=== PATIENT | male | born 1955 | race Caucasian/White ===

== ENCOUNTER → 2018-01-22 | Outpatient (CLI) | payer BC ==
[~2018-01-22] MED LIST: ASPI-496 PO; CBC OIL PO; PRAV10TA2 PO
[2018-01-22 15:35] LABS: MICROSCOPIC NOT IND
[2018-01-22 15:37] LABS: CULTURE INDICATED? NO
[2018-01-22 16:05] LABS: BASOPHILS # (AUTO) 0.04 x10^3/uL (0-0.1); BASOPHILS % (AUTO) 1 % (0-1); EOSINOPHILS # (AUTO) 0.07 x10^3/uL (0-0.4); EOSINOPHILS % (AUTO) 1 % (1-7); LYMPHOCYTES # (AUTO) 2.56 x10^3/uL (1-3.4); LYMPHOCYTES % (AUTO) 37 % (22-44); MD NO; MEAN CORPUSCULAR HEMOGLOBIN 32.5 pg (27.5-34.5); MEAN CORPUSCULAR HGB CONC 34.3 g/dL (33.2-36.2); MEAN CORPUSCULAR VOLUME 94.9 fL (81-97); MONOCYTES # (AUTO) 0.47 x10^3/uL (0.2-0.8); MONOCYTES % (AUTO) 7 % (2-9); NEUTROPHILS # (AUTO) 3.86 x10^3/uL (1.8-6.8); NEUTROPHILS % (AUTO) 55 % (42-75); PLATELET COUNT 231 x10^3/uL (130-400); RED BLOOD COUNT 4.71 x10^6/uL (4.38-5.82); RED CELL DISTRIBUTION WIDTH 13.4 % (9.4-14.8)
[2018-01-22 16:17] LABS: ANION GAP 8 mmol/L (5-15); CALCIUM 8.7 mg/dL (8.5-10.1); CHLORIDE 109 mmol/L (98-107); CREATININE 0.91 mg/dL (0.7-1.3)
== END | disposition home or self-care (01) ==
LOC: STAR 15:37
PROVIDERS: ATTEND Orthopaedic Surgery
DX: Z01.818 Encounter for other preprocedural examination (principal); M17.12 Unilateral primary osteoarthritis, left knee
CPT/HCPCS: 36415; 80048; 81003; 85025; 87081; 93005

== ENCOUNTER 2018-01-27 07:34 | Inpatient (IN) | payer BC ==
[~2018-01-27] VITALS: Ht 180.3 cm; Wt 98.5 kg
[2018-01-27] MEDS ORDERED: TAMSULOSIN 0.4 MG CAP.ER.24H PO ONE (08:00)
[2018-01-27] MEDS ORDERED: GABAPENTIN 300 MG CAPSULE PO ONE (08:00)
[2018-01-27] MEDS ORDERED: ONDANSETRON ODT 8 MG PO ONE (08:00)
[2018-01-27] MEDS ORDERED: OxyconTIN ER 20 MG TAB.ER PO ONE (08:00)
[2018-01-27] MEDS ORDERED: ACETAMINOPHEN 500 MG TABLET PO ONE (08:00)
[2018-01-27] MEDS ORDERED: LACTATED RINGERS 1,000 ML IV SCH (08:01)
[2018-01-27 08:14] VITALS: BP 129/88
[2018-01-27] MEDS ORDERED: MIDAZOLAM 1 MG/ML, 2ML ONE (09:53)
[2018-01-27] MEDS ORDERED: FENTANYL PF 250 MCG/5ML ONE (09:53)
[2018-01-27] MEDS ORDERED: TRANEXAMIC ACID 100 MG/ML, 10ML ONE (10:26)
[2018-01-27] MEDS ORDERED: KETOROLAC 60 MG/2 ML ONE (10:26)
[2018-01-27] MEDS ORDERED: EPINEPHRINE 1 MG/ML, 1ML ONE (10:27)
[2018-01-27] MEDS ORDERED: ROPIvacaine/PF 0.2%, 20 ML ONE (10:27)
[2018-01-27] MEDS ORDERED: SODIUM CHLORIDE 0.9% 100 ML ONE (10:27)
[2018-01-27] MEDS ORDERED: ALUMINUM/MAG/SIMETHICONE 30 ML UDC PO PRN (11:00)
[2018-01-27] MEDS ORDERED: MAGNESIUM HYDROXIDE 8%, 30ML UDC PO PRN (11:00)
[2018-01-27] MEDS ORDERED: DIAZEPAM 5 MG TABLET PO PRN (11:00)
[2018-01-27] MEDS ORDERED: BISACODYL 10 MG SUPP PR PRN (11:00)
[2018-01-27] MEDS ORDERED: ONDANSETRON 4 MG TABLET PO PRN (11:00)
[2018-01-27] MEDS ORDERED: PROMETHAZINE 25 MG/ML, 1ML IM PRN (11:00)
[2018-01-27] MEDS ORDERED: DIPHENHYDRAMINE 50 MG CAPSULE PO PRN (11:00)
[2018-01-27] MEDS ORDERED: PROMETHAZINE 12.5 MG SUPP PR PRN (11:00)
[2018-01-27] MEDS: ACETAMINOPHEN 650 MG/20.3 ML UDC PO SCH ×3 (11:00→23:39)
[2018-01-27] MEDS ORDERED: SENNA/DOCUSATE TABLET PO PRN (11:00)
[2018-01-27] MEDS ORDERED: OXYcodone IR 5MG TABLET PO PRN (11:00)
[2018-01-27] MEDS ORDERED: HYDROmorphone 1 MG/ML, 1ML IV PRN (11:00)
[2018-01-27] MEDS ORDERED: ZOLPIDEM 5MG TABLET PO PRN (11:00)
[2018-01-27] MEDS: KETOROLAC 30 MG/1 ML IV SCH ×3 (11:00→23:39)
[2018-01-27] MEDS ORDERED: PROMETHAZINE 25 MG/ML, 1ML IV PRN (11:30)
[2018-01-27] MEDS ORDERED: MEPERIDINE/PF 25MG/0.5ML IVPush PRN (11:30)
[2018-01-27] MEDS ORDERED: LABETALOL 5MG/ML, 20ML IV PRN (11:30)
[2018-01-27] MEDS ORDERED: FENTANYL PF 100 MCG/2ML IV PRN (11:30)
[2018-01-27] MEDS ORDERED: hydrALAzine 20 MG/ML, 1ML IV PRN (11:30)
[2018-01-27] MEDS ORDERED: ONDANSETRON 2MG/ML, 2ML IV PRN (11:30)
[2018-01-27] MEDS ORDERED: HYDROmorphone 2 MG/ML, 1ML IVPush PRN (11:30)
[2018-01-27] MEDS ORDERED: ALBUTEROL/IPRATROPIUM 2.5MG/0.5MG, 3 ML NPPB PRN (11:30)
[2018-01-27] MEDS ORDERED: MIDAZOLAM 1 MG/ML, 2ML IV PRN (11:30)
[2018-01-27] MEDS ORDERED: BUPIVACAINE/PF 0.25% ONE (11:46)
[2018-01-27] MEDS ORDERED: DEXAMETHASONE 4 MG/ML, 1ML ONE (11:47)
[2018-01-27] MEDS ORDERED: FENTANYL PF 100 MCG/2ML ONE (11:47)
[2018-01-27] MEDS ORDERED: PROPOFOL 10 MG/ML, 20ML ONE (11:47)
[2018-01-27] MEDS ORDERED: LIDOCAINE-MPF 2% ,5ML ONE (11:47)
[2018-01-27] MEDS ORDERED: CEFAZOLIN 1,000 MG ONE (11:47)
[2018-01-27] MEDS ORDERED: TRANEXAMIC ACID 1,000 MG in SODIUM CHLORIDE 0.9% 100 ML IVPB ONE (12:15)
[2018-01-27] MEDS: TAMSULOSIN 0.4 MG CAP.ER.24H PO SCH (12:15)
[2018-01-27] MEDS ORDERED: OXYcodone 5 MG/5 ML ORAL.SOL UDC ONE ×2 (12:40→13:01)
[2018-01-27] MEDS: OXYcodone 5 MG/5 ML ORAL.SOL UDC PO PRN ×2 (12:41→12:50)
[2018-01-27 14:00] VITALS: BP 113/69
[2018-01-27] MEDS: D5%-0.45% NACL 1,000 ML IV SCH ×2 (15:00→23:00)
[2018-01-27] MEDS ORDERED: ACETAMINOPHEN 500 MG TABLET ONE (17:15)
[2018-01-27] MEDS: ASPIRIN 81 MG TABLET EC PO SCH (17:22)
[2018-01-27] MEDS: CEFAZOLIN PMX 2GM/50ML 50 ML IVPB SCH (17:22)
[2018-01-27] MEDS: ONDANSETRON 2MG/ML, 2ML IV PRN (17:46)
[2018-01-27 20:00] VITALS: BP 113/62
[2018-01-27] MEDS: DOCUSATE 100 MG CAPSULE PO SCH (20:16)
[2018-01-27] MEDS ORDERED: PRAVASTATIN 20 MG TABLET PO SCH (21:00)
[2018-01-27 23:42] VITALS: BP 128/72
[2018-01-28] MEDS: ONDANSETRON 2MG/ML, 2ML IV PRN (00:01)
[2018-01-28] MEDS: CEFAZOLIN PMX 2GM/50ML 50 ML IVPB SCH (01:25)
[2018-01-28 04:00] VITALS: BP 141/75
[2018-01-28] MEDS: ACETAMINOPHEN 650 MG/20.3 ML UDC PO SCH ×2 (05:00→10:27)
[2018-01-28] MEDS: KETOROLAC 30 MG/1 ML IV SCH ×2 (05:11→10:27)
[2018-01-28] MEDS: ASPIRIN 81 MG TABLET EC PO SCH (05:11)
[2018-01-28] MEDS ORDERED: DEXAMETHASONE 4 MG/ML, 1ML IVPush SCH (06:00)
[2018-01-28] MEDS: D5%-0.45% NACL 1,000 ML IV SCH ×2 (07:00→10:27)
[2018-01-28] MEDS: DOCUSATE 100 MG CAPSULE PO SCH (08:26)
[2018-01-28] MEDS: TAMSULOSIN 0.4 MG CAP.ER.24H PO SCH (08:27)
[2018-01-28 08:34] VITALS: BP 157/82
[2018-01-28] MEDS ORDERED: MULTIVITAMINS/MINERALS TABLET PO SCH (09:00)
[2018-01-28] MEDS ORDERED: OXYC5CAP2 PO (12:44)
[2018-01-28 13:34] VITALS: BP 142/76
== END 2018-01-28 14:45 | disposition home or self-care (01) | DRG 470 ==
LOC: OUT 07:34 → ORIP 10:33 → 4NOR 13:11 → DCLOUNGE 01-28 14:37
PROVIDERS: ADMIT Orthopaedic Surgery; ATTEND Orthopaedic Surgery
PROC: 0SRD069 Replacement of Left Knee Joint with Oxidized Zirconium on Polyethylene Synthetic Substitute, Cemented, Open Approach (ICD-10-PCS; 2018-01-27)
PROC: 3E0T3BZ Introduction of Anesthetic Agent into Peripheral Nerves and Plexi, Percutaneous Approach (ICD-10-PCS; principal; 2018-01-27 10:30)
DX: M17.12 Unilateral primary osteoarthritis, left knee (principal); E78.5 Hyperlipidemia, unspecified; Z79.82 Long term (current) use of aspirin; Z88.5 Allergy status to narcotic agent
CPT/HCPCS: 36415; 85014; 85018; C1713; G0378; J0171; J0690; J1100; J1885; J2250; J2405; J2704; J2795; J3010; J3490; Q0162; C1776; J7120

== ENCOUNTER 2020-10-25 07:34 | Observation (INO) | payer OTHER, MEDICARE ==
[~2020-10-25] VITALS: Ht 180.3 cm; Wt 95.5 kg
[~2020-10-25 07:34] MED LIST changes: +EPINEPHRINE 1 MG/ML, 1ML ONE; +KETOROLAC 60 MG/2 ML ONE; +OXYC5CAP2 PO; +ROPIvacaine/PF 0.2%, 20 ML ONE; +SODIUM CHLORIDE 0.9% 50 ML ONE; +TRANEXAMIC ACID 100 MG/ML, 10ML ONE; +VANCOMYCIN 1,000 MG ONE
[2020-10-25] MEDS ORDERED: CHLORHEXIDINE 15 ML UDC ONE (08:21)
[2020-10-25] MEDS ORDERED: [UNRECOGNIZED DRUG - OTHER] INJ (08:29)
[2020-10-25] MEDS ORDERED: VIT B12 PO (08:29)
[2020-10-25] MEDS ORDERED: VIT D3 PO (08:29)
[2020-10-25] MEDS ORDERED: ZINC PO (08:29)
[2020-10-25] MEDS ORDERED: FISH OIL PO (08:29)
[2020-10-25] MEDS ORDERED: ONDANSETRON 4 MG TABLET PO PRN (08:30)
[2020-10-25] MEDS ORDERED: HYDROmorphone 1 MG/ML, 1ML INJ IVPush PRN ×2 (08:30→09:30)
[2020-10-25] MEDS ORDERED: DIAZEPAM 5 MG TABLET PO PRN (08:30)
[2020-10-25] MEDS ORDERED: CEFAZOLIN PMX 1GM/50ML 50 ML IVPB SCH (08:30)
[2020-10-25] MEDS ORDERED: OXYcodone/APAP 5/325MG TABLET PO PRN (08:30)
[2020-10-25] MEDS ORDERED: LACTATED RINGERS 1,000 ML IV SCH (08:30)
[2020-10-25] MEDS ORDERED: DIPHENHYDRAMINE 50 MG/ML, 1ML IVPush PRN ×3 (08:30→09:30)
[2020-10-25] MEDS ORDERED: CHLORHEXIDINE 15 ML UDC PO ONE (08:30)
[2020-10-25] MEDS ORDERED: KETOROLAC 30 MG/1 ML IV SCH (08:30)
[2020-10-25] MEDS ORDERED: ACETAMINOPHEN 325 MG TABLET PO PRN (08:30)
[2020-10-25] MEDS ORDERED: VANCOMYCIN PER PHARMACY MC PRN (08:30)
[2020-10-25] MEDS ORDERED: PROMETHAZINE 25 MG/ML, 1ML IM PRN (08:30)
[2020-10-25] MEDS ORDERED: OXYcodone 5 MG/5 ML ORAL.SOL UDC PO PRN ×2 (08:30→09:30)
[2020-10-25 08:32] VITALS: BP 166/93
[2020-10-25] MEDS ORDERED: FENTANYL PF 250 MCG/5ML ONE (08:54)
[2020-10-25] MEDS ORDERED: MIDAZOLAM 1 MG/ML, 2ML ONE (08:54)
[2020-10-25] MEDS ORDERED: PROPOFOL 10 MG/ML, 20ML ONE (08:57)
[2020-10-25] MEDS ORDERED: ONDANSETRON 2MG/ML, 2ML ONE (08:59)
[2020-10-25] MEDS ORDERED: CEFAZOLIN 1,000 MG ONE (08:59)
[2020-10-25] MEDS ORDERED: SUCCINYLCHOLINE 20 MG/ML, 10ML ONE (08:59)
[2020-10-25] MEDS ORDERED: DOCUSATE 100 MG CAPSULE PO SCH (09:00)
[2020-10-25] MEDS ORDERED: VANCOMYCIN 1,900 MG in SODIUM CHLORIDE 0.9% 250 ML IV ONE (09:00)
[2020-10-25] MEDS ORDERED: DEXAMETHASONE 4 MG/ML, 1ML ONE (09:07)
[2020-10-25] MEDS ORDERED: hydrALAzine 20 MG/ML, 1ML IV PRN (09:30)
[2020-10-25] MEDS ORDERED: PROMETHAZINE 25 MG/ML, 1ML IVPush PRN (09:30)
[2020-10-25] MEDS ORDERED: ONDANSETRON 2MG/ML, 2ML IVPush PRN (09:30)
[2020-10-25] MEDS ORDERED: EPHEDRINE 50 MG/ML, 1ML IVPush PRN (09:30)
[2020-10-25] MEDS ORDERED: MEPERIDINE/PF 25MG/0.5ML IVPush PRN (09:30)
[2020-10-25] MEDS ORDERED: MIDAZOLAM 1 MG/ML, 2ML IV PRN (09:30)
[2020-10-25] MEDS ORDERED: ALBUTEROL SULFATE 2.5 MG/3 ML NPPB PRN (09:30)
[2020-10-25] MEDS ORDERED: DEXAMETHASONE 4 MG/ML, 1ML IVPush SCH (09:30)
[2020-10-25] MEDS ORDERED: LABETALOL 5MG/ML, 20ML IV PRN (09:30)
[2020-10-25] MEDS ORDERED: FENTANYL PF 100 MCG/2ML IV PRN (09:30)
[2020-10-25] MEDS ORDERED: DIAZEPAM 5 MG/ML, 2ML IVPush PRN (09:30)
[2020-10-25] MEDS ORDERED: PROMETHAZINE 12.5 MG SUPP PR PRN (09:30)
[2020-10-25] MEDS ORDERED: DIAZEPAM 5 MG/ML, 2ML ONE (10:54)
[2020-10-25] MEDS ORDERED: OXYcodone 5 MG/5 ML ORAL.SOL UDC ONE (10:54)
[2020-10-25] MEDS ORDERED: ACETAMINOPHEN 650 MG/20.3 ML UDC ONE (10:54)
[2020-10-25] MEDS ORDERED: TRANEXAMIC ACID 1,000 MG in SODIUM CHLORIDE 0.9% 100 ML IVPB ONE (11:00)
[2020-10-26] MEDS ORDERED: ASPIRIN 81 MG TABLET EC PO SCH ×2 (06:00→18:00)
== END 2020-10-25 16:10 | disposition home or self-care (01) ==
LOC: ORIP 07:34 → INTOOBSV 07:34
PROVIDERS: ADMIT Orthopaedic Surgery; ATTEND Orthopaedic Surgery
DX: M17.11 Unilateral primary osteoarthritis, right knee (principal); Z20.822 Contact with and (suspected) exposure to COVID-19; I25.10 Atherosclerotic heart disease of native coronary artery without angina pectoris; E11.9 Type 2 diabetes mellitus without complications; E78.5 Hyperlipidemia, unspecified; Z86.73 Personal history of transient ischemic attack (TIA), and cerebral infarction without residual deficits; Z79.899 Other long term (current) drug therapy
CPT/HCPCS: 27447; 73560; 87635; 93005; 97110; 97161; C1713; C1776; G0378; J0171; J1100; J1885; J2250; J2704; J2795; J3010; J3360; J7120; J0690; J2405; J3370; J0330